=== PATIENT | male | born 2005 | race Two or more races ===

== ENCOUNTER 2025-06-08 23:10 | Inpatient (IN) | payer SELFPAY ==
[~2025-06-08] VITALS: Ht 185.4 cm; Wt 69.4 kg
[2025-06-08 23:17] VITALS: O2SAT 99
[2025-06-08 23:35] LABS: BASOPHILS % 0.9 % (0.0-2.0); EOSINOPHILS % 6.2 % (0.0-5.0); HEMATOCRIT. 45.4 % (42.0-52.0); HEMOGLOBIN. 15.2 g/dL (14.0-18.0); LYMPHOCYTES % 36.7 % (20.0-50.0); MEAN PLATELET VOLUME 7.9 fl (7.4-10.4); MONOCYTES % 6.7 % (2.0-8.0); NEUTROPHILS % 49.5 % (40.0-76.0); PLATELET 366 x1000/uL (130-400); RED BLOOD CELL COUNT 5.08 mill/uL (4.7-6.1); RED CELL DISTRIBUTION WIDTH 13.6 % (11.6-14.6)
[2025-06-08 23:51] LABS: CREATININE 0.9 mg/dL (0.6-1.3)
[2025-06-08 23:52] LABS: PROTEIN TOTAL 8.0 g/dL (6.0-8.3); UREA NITROGEN BLOOD 15 mg/dL (9-23)
[2025-06-08 23:53] LABS: ASPARTATE AMINOTRANSFERASE 21 IU/L (<34)
[2025-06-08 23:54] LABS: BILIRUBIN DIRECT < 0.1 mg/dL (<=3.0); BILIRUBIN TOTAL 0.3 mg/dL (0.1-1.0)
[2025-06-08] MEDS: DIPHENHYDRAMINE 50MG/ML VIAL IM ONE (23:57)
[2025-06-08] MEDS: HALOPERIDOL LACTATE 5MG/ML VIAL IM ONE (23:57)
[2025-06-09 00:07] LABS: ETHANOL BLOOD 371 mg/dL (<10)
[2025-06-09 00:35] LABS: *AMPHETAMINES SCREEN URINE PRESUMPTIVE POSITIVE (NEGATIVE); *BARBITURATES SCREEN URINE NEGATIVE (NEGATIVE); *BENZODIAZEPINES SCREEN URINE NEGATIVE (NEGATIVE); *COCAINE SCREEN URINE NEGATIVE (NEGATIVE); METHADONE URINE SCREEN NEGATIVE (NEGATIVE); OPIATES URINE SCREEN NEGATIVE (NEGATIVE)
[2025-06-09 00:36] LABS: CANNABINOID URINE SCREEN PRESUMPTIVE POSITIVE (NEGATIVE); ECSTASY MDMA SCREEN URINE NEGATIVE (NEGATIVE); PHENCYCLIDINE URINE SCREEN NEGATIVE (NEGATIVE)
[2025-06-09] MEDS: LORAZEPAM 2MG/ML UD SYRINGE IV NR (04:44)
[2025-06-09 08:00] VITALS: BP 110/46; PULSE 59; RESP 17; TEMP 35.9; O2SAT 96
[2025-06-09 08:17] VITALS: BP 101/72; PULSE 95; RESP 18; TEMP 36.3; O2SAT 100
[2025-06-09 09:00] VITALS: BP 101/72; PULSE 97; RESP 16; TEMP 36.3068
[2025-06-09] MEDS ORDERED: CLONIDINE 0.1MG TABLET PO PRN (09:15)
[2025-06-09] MEDS ORDERED: ONDANSETRON HCL 4MG/2ML INJ IV PRN (09:15)
[2025-06-09] MEDS ORDERED: ACETAMINOPHEN 325MG TABLET PO PRN ×2 (09:15)
[2025-06-09] MEDS ORDERED: LORAZEPAM 2MG/ML UD SYRINGE IV PRN (09:15)
[2025-06-09] MEDS: FAMOTIDINE 20MG/2ML VIAL IV SCH (10:33)
[2025-06-09] MEDS: THIAMINE HCL 100MG TABLET PO SCH (10:34)
[2025-06-09] MEDS: MVI, ADULT NO.1 10 ML, FOLIC ACID 1 MG, THIAMINE HCL 100 MG in SODIUM CHLORIDE 0.9% 1,0... IV ONE (10:34)
[2025-06-09] MEDS: MULTIVITAMINS,THER W-MINERALS TABLET PO SCH (10:34)
[2025-06-09 12:12] VITALS: BP 98/44; PULSE 103; RESP 20; TEMP 36.7; O2SAT 97
[2025-06-09 16:20] VITALS: BP 103/42; PULSE 111; RESP 20; TEMP 36.7; O2SAT 99
[2025-06-09 20:00] VITALS: BP 106/52; PULSE 86; RESP 18; TEMP 37.2; O2SAT 98
[2025-06-10 00:10] VITALS: BP 105/57; PULSE 88; RESP 20; TEMP 36.9; O2SAT 96
[2025-06-10 04:00] VITALS: BP 96/46; PULSE 82; RESP 18; TEMP 36.4; O2SAT 100
[2025-06-10 06:25] LABS: BASOPHILS % 1.2 % (0.0-2.0); EOSINOPHILS % 7.2 % (0.0-5.0); HEMATOCRIT. 41.8 % (42.0-52.0); HEMOGLOBIN. 13.8 g/dL (14.0-18.0); LYMPHOCYTES % 33.4 % (20.0-50.0); MEAN PLATELET VOLUME 8.9 fl (7.4-10.4); MONOCYTES % 10.1 % (2.0-8.0); NEUTROPHILS % 48.1 % (40.0-76.0); PLATELET 304 x1000/uL (130-400); RED BLOOD CELL COUNT 4.67 mill/uL (4.7-6.1); RED CELL DISTRIBUTION WIDTH 13.6 % (11.6-14.6)
[2025-06-10 06:50] LABS: CREATININE 0.7 mg/dL (0.6-1.3); T4 FREE 1.18 ng/dL (0.89-1.76); TRIGLYCERIDE 84 mg/dL (0-150); UREA NITROGEN BLOOD 12 mg/dL (9-23)
[2025-06-10 06:51] LABS: LDL CHOLESTEROL 52 mg/dL (5-100)
[2025-06-10 07:39] VITALS: BP 117/60; PULSE 77; RESP 16; TEMP 36.6; O2SAT 100
[2025-06-10 12:00] VITALS: BP 111/67; PULSE 80; RESP 16; TEMP 36.6; O2SAT 100
[2025-06-10 16:34] VITALS: BP 103/64; PULSE 74; RESP 14; TEMP 36.7; O2SAT 100
[2025-06-10 20:00] VITALS: BP 114/62; PULSE 90; RESP 19; TEMP 36.3; O2SAT 97
[2025-06-11 00:08] VITALS: BP 109/65; PULSE 73; RESP 18; TEMP 36.3; O2SAT 97
[2025-06-11 04:00] VITALS: BP 107/61; PULSE 72; RESP 16; TEMP 36.7; O2SAT 97
[2025-06-11 08:00] VITALS: BP 99/62; PULSE 74; RESP 16; TEMP 36.7; O2SAT 98
[2025-06-11] MEDS ORDERED: THIA100T72 MT (11:56)
[2025-06-11 12:00] VITALS: BP 102/60; PULSE 68; RESP 15; TEMP 36.7; O2SAT 98
[2025-06-11 15:19] VITALS: BP 120/65; PULSE 75; RESP 16; TEMP 97.8
[2025-06-11 15:32] VITALS: BP 123/87; PULSE 88; RESP 19; TEMP 35.6; O2SAT 99
== END 2025-06-11 16:04 | disposition home or self-care (01) | DRG 52 ==
LOC: ER 23:10 → EDBEDREQTM 06-09 05:52 → EDBEDREQ 06-09 05:52 → ENRESERV 06-09 07:01 → 7WST 06-09 07:36 → EDBD 06-09 07:36
PROVIDERS: ADMIT Student in an Organized Health Care Education/Training Program; ATTEND Student in an Organized Health Care Education/Training Program
DX: G92.8 Other toxic encephalopathy (principal); E87.0 Hyperosmolality and hypernatremia; G31.2 Degeneration of nervous system due to alcohol; F10.129 Alcohol abuse with intoxication, unspecified; F15.10 Other stimulant abuse, uncomplicated; F32.9 Major depressive disorder, single episode, unspecified; Z59.01 Sheltered homelessness; F12.10 Cannabis abuse, uncomplicated; D72.829 Elevated white blood cell count, unspecified; Y90.8 Blood alcohol level of 240 mg/100 ml or more; Z53.29 Procedure and treatment not carried out because of patient's decision for other reasons; Z79.899 Other long term (current) drug therapy
CPT/HCPCS: 36415; 71045; 80048; 80061; 80076; 80305; 80320; 80329; 82550; 84439; 84443; 84481; 85025; 93005; 99291; J1200; J1308; J1630; J2060; J3411; J3490; J7030; G0480